=== PATIENT | female | born 1985 | race Caucasian/White ===

== ENCOUNTER 2020-06-05 08:40 | Outpatient (CLI) | payer OTHER | END 2020-06-05 08:48 | disposition home or self-care (01) | LOC: RX STUDY 08:40 | PROVIDERS: ATTEND Obstetrics & Gynecology Reproductive Endocrinology | DX: Q51.818 Other congenital malformations of uterus (principal) ==

== ENCOUNTER 2022-07-27 13:04 | Inpatient (IN) | payer OTHER ==
[~2022-07-27] VITALS: Ht 170.2 cm; Wt 58.5 kg
[2022-07-27] MEDS ORDERED: PRENATAL TABLE1 EAC1 (13:55)
[2022-07-30] MEDS ORDERED: Procardia Xl 30MG TA PO (11:29)
== END 2022-07-30 14:37 | disposition home or self-care (01) | DRG 832 ==
LOC: LDR 13:04 → OB/GYN 07-28 19:45
PROVIDERS: ADMIT Obstetrics & Gynecology Gynecology; ATTEND Obstetrics & Gynecology Gynecology
PROC: 4A1HXCZ Monitoring of Products of Conception, Cardiac Rate, External Approach (ICD-10-PCS; principal; 2022-07-27)
PROC: BY4CZZZ Ultrasonography of Second Trimester, Single Fetus (ICD-10-PCS; 2022-07-27)
PROC: BU4CZZZ Ultrasonography of Uterus and Ovaries (ICD-10-PCS; 2022-07-27)
DX: O60.02 Preterm labor without delivery, second trimester (principal); O26.872 Cervical shortening, second trimester; O26.842 Uterine size-date discrepancy, second trimester; Z3A.25 25 weeks gestation of pregnancy; Z20.822 Contact with and (suspected) exposure to COVID-19

== ENCOUNTER 2022-08-04 13:09 | Outpatient (CLI) | payer OTHER ==
[~2022-08-04 13:09] MED LIST: PRENATAL TABLE1 EAC1; Procardia Xl 30MG TA PO
== END 2022-08-04 13:59 | disposition home or self-care (01) ==
LOC: NST 13:09
PROVIDERS: ATTEND Specialist
DX: Z34.83 Encounter for supervision of other normal pregnancy, third trimester (principal)

== ENCOUNTER 2022-08-09 09:28 | Outpatient (CLI) | payer OTHER | END 2022-08-09 09:40 | disposition home or self-care (01) | LOC: SONOGRAMA 09:28 | PROVIDERS: ATTEND Obstetrics & Gynecology Maternal & Fetal Medicine | DX: R31.9 Hematuria, unspecified (principal) ==

== ENCOUNTER 2022-10-25 02:12 | Inpatient (IN) | payer OTHER ==
[~2022-10-25] VITALS: Ht 170.2 cm; Wt 64.9 kg
[2022-10-25] MEDS ORDERED: NIFEDIPINE ER30 M1 (14:23)
== END 2022-10-27 11:40 | disposition home or self-care (01) | DRG 807 ==
LOC: LDR 02:12 → OB/GYN 15:34
PROVIDERS: ADMIT Obstetrics & Gynecology; ATTEND Obstetrics & Gynecology
PROC: 10D07Z6 Extraction of Products of Conception, Vacuum, Via Natural or Artificial Opening (ICD-10-PCS; principal; 2022-10-25)
PROC: 0KQM0ZZ Repair Perineum Muscle, Open Approach (ICD-10-PCS; 2022-10-25)
PROC: 0W8NXZZ Division of Female Perineum, External Approach (ICD-10-PCS; 2022-10-25)
PROC: 4A1HXCZ Monitoring of Products of Conception, Cardiac Rate, External Approach (ICD-10-PCS; 2022-10-25)
DX: O70.1 Second degree perineal laceration during delivery (principal); Z37.0 Single live birth; O66.5 Attempted application of vacuum extractor and forceps; Z3A.38 38 weeks gestation of pregnancy